=== PATIENT | male | born 1945 | race Caucasian/White ===

== ENCOUNTER → 2023-10-05 11:38 | Outpatient (REF) | payer MEDICARE, OTHER, SELFPAY ==
[2023-10-05 13:03] LABS: PSA, Total - Diagnostic < 0.06 ng/ml (0.0-4.0)
== END ==
LOC: REG 11:38
PROVIDERS: ATTENDING PHYSICIAN Specialist; FAMILY PHYSICIAN Family Medicine
DX: C61 Malignant neoplasm of prostate (principal)
CPT/HCPCS: 36415; 84153

== ENCOUNTER → 2023-11-17 08:25 | Outpatient (REF) | payer MEDICARE, BC, SELFPAY ==
[2023-11-17 10:31] LABS: ALT (SGPT) 23 U/L (0-50); AST (SGOT) 25 U/L (17-59); Albumin 4.4 g/dl (3.5-5.0); Alkaline Phosphatase 88 U/L (38-126); Blood Urea Nitrogen 30 mg/dl (9-20); Calcium 9.3 mg/dl (8.4-10.2); Carbon Dioxide 26 mmol/L (22-30); Chloride 105 mmol/L (98-107); Glucose 175 mg/dl (70-99); HDL Cholesterol 28 mg/dl; LDL Cholesterol, Calculated 62 mg/dl; Potassium 4.6 mmol/L (3.5-5.1); Sodium 137 mmol/L (135-145); Total Bilirubin 0.6 mg/dl (0.2-1.3); Total Cholesterol 120 mg/dl (50-199); Total Protein 7.1 g/dl (6.3-8.2); Triglyceride 151 mg/dl (10-149); Very Low Density Lipoprotein 30 mg/dl (0-30); eGFR > 60.00
[2023-11-17 11:28] LABS: Microalbumin, Random Urine 4.6 mg/dl (0.6-1.7); Microalbumin/creatinine Ratio 59.1 mg/g
[2023-11-17 11:30] LABS: Glycohemoglobin (HgbA1c) 8.1 % (4.0-5.6)
== END ==
LOC: REG 08:25
PROVIDERS: ATTENDING PHYSICIAN Family Medicine; FAMILY PHYSICIAN Family Medicine
DX: E11.69 Type 2 diabetes mellitus with other specified complication (principal)
CPT/HCPCS: 36415; 80053; 80061; 82043; 82570; 83036

== ENCOUNTER → 2024-01-12 11:08 | Outpatient (REF) | payer MEDICARE, BC, SELFPAY ==
[2024-01-12 13:05] LABS: PSA, Total - Diagnostic < 0.06 ng/ml (0.0-4.0)
== END ==
LOC: REG 11:08
PROVIDERS: ATTENDING PHYSICIAN Specialist; FAMILY PHYSICIAN Family Medicine
DX: C61 Malignant neoplasm of prostate (principal)
CPT/HCPCS: 36415; 84153

== ENCOUNTER → 2024-06-22 09:52 | Outpatient (REF) | payer MEDICARE, BC, SELFPAY ==
[2024-06-22 12:23] LABS: PSA, Total - Diagnostic < 0.06 ng/ml (0.0-4.0)
== END ==
LOC: REG 09:52
PROVIDERS: ATTENDING PHYSICIAN Specialist; FAMILY PHYSICIAN Family Medicine
DX: C61 Malignant neoplasm of prostate (principal)
CPT/HCPCS: 36415; 84153

== ENCOUNTER 2024-09-15 05:43 | Emergency (ER) | payer MEDICARE, BC, SELFPAY ==
[2024-09-15] VITALS (7 sets, daily range): BP systolic 144–194; BP diastolic 73–86; BMI 32.3
--- NOTE | 2024-09-15 06:19 | ED.GENMED ---
History of Present Illness
<Kirill Ramsay MD - Last Filed: 09/15/24 07:45>
General
Chief Complaint: Headache
Source: patient and spouse
Exam Limitations: none
Time Seen by Provider: 09/15/24 05:58
Nursing documentation reviewed up to this point in time: agreed with
History of Present Illness
History of Present Illness:
78-year-old male with a past medical history as noted presents to the emergency room for evaluation of headache. Patient reports sudden onset rather severe headache that woke him up at 4 AM and has been constant since that time. He reports that it
wraps around in a band around the left side of his head. No clear trigger or relieving factors noted although he did try 2 Tylenol prior to coming to the hospital. He denies any neck pain or stiffness. He denies any eye pain. Denies any vision
loss. He denies any speech issues. Denies any weakness or numbness in extremities. He denies feeling nauseated or vomiting. He says 'I have not had a headache in 25 years.' Denies any head trauma.
Past History
<Kirill Ramsay MD - Last Filed: 09/15/24 07:45>
Past History
ED Past Medical History: Hypercholesterolemia and Other (bph, skin cancer)
ED Past Surgical History: None, Orthopedic and Urological
Social History
Tobacco: Non-smoker
Living: with family
Review of Systems
<Kirill Ramsay MD - Last Filed: 09/15/24 07:45>
Review of Systems
All Other Systems: ROS reviewed and negative except as documented in HPI and ROS
Constitutional: Denies fever or chills
Respiratory: Denies trouble breathing
Cardiac: Denies chest pain or syncope
ABD/GI: Denies abdominal pain, nausea or vomiting
: Denies flank pain
Musculoskeletal: Denies neck pain or back pain
Neurological: Reports headache; Denies dizzy, weakness or numbness
Phy Exam
<Kirill Ramsay MD - Last Filed: 09/15/24 07:45>
Physical Exam
Physical Exam:
General: Awake, alert, oriented x3; actually quite well-appearing sitting in bed and in no acute distress
Head: Normocephalic, atraumatic
Eyes: Conjunctiva normal, EOMI, pupils midrange and reactive to light bilaterally; eye pressure R 8,9,9//L 10,10,9
Throat: Airway intact, handling secretions
Neck: Trachea midline, supple without meningismus
Lungs: Clear to auscultation bilaterally, no wheezing, rales, rhonchi
Heart: Regular rate and rhythm, no murmurs, gallops, or rubs
Abd: Soft, non distended, nontender
Neuro: Cranial nerves intact, speech fluid no dysarthria or aphasia, no limb ataxia, motor and sensory intact in all extremities
Skin: no rash
Extremities: Warm and well-perfused, no edema
Scores
<Kirill Ramsay MD - Last Filed: 09/15/24 07:45>
Heart Failure Risk
Heart Failure Risk Score: Not Applicable
Heart Score for Chest Pain Patients
STEMI patient?: Not applicable
Withdrawal Assessment of Alcohol
Withdrawal Assessment Completed?: Not applicable
Course
<Kirill Ramsay MD - Last Filed: 09/15/24 07:45>
Orders/Labs/Results
Orders:
Orders
09/15/24 05:57
CT Head & Neck Angio W/wo IV Urgent
Comment:
Reason For Exam: thunderclap headache
09/15/24 06:11
Comprehensive Metabolic Panel Urgent
09/15/24 06:12
COVID-19 Antigen Urgent
Source: Nasal Swab
Complete Blood Count/With Diff Urgent
ESR [Erythrocyte Sed Rate] Urgent
Influenza A+B Rapid Molecular Urgent
NINI Source: Nasal Swab
Specimen Description:
09/15/24 06:25
Diphenhydramine [Benadryl] 25 mg IV NOW STA
Metoclopramide [Reglan] 10 mg IV NOW STA
09/15/24 06:26
0.9% Sodium Chloride 1000 ml [Nss] 1,000 ml IV BOLUS
09/15/24 07:00
Ketorolac [Toradol] 15 mg IV NOW STA
09/15/24 07:43
NEUROLOGY CONSULT Urgent
Consulting Provider: Ana Wynn
Was physician already notified: Yes
09/15/24 08:55
MRI Brain [MR Brain W/o & With Contrast] Routine
Comment:
Reason For Exam: stroke
OK for patient to be off Cardiac Monitoring for MRI: No
Recent pill cam endoscopy?: No
09/15/24 09:18
CRP [C-Reactive Protein] Routine
Magnesium Routine
09/15/24 10:04
Acid Fast Culture & Smear Urgent
NINI Source: Csf
Specimen Description:
CSF Cell Count X Urgent
CSF Tube Number: 4
CSF Culture with Gram Stain Urgent
NINI Source: Csf
Specimen Description:
# of Tube: 3
Meningitis Panel, CSF by PCR Urgent
NINI Source: Csf
Specimen Description:
09/15/24 10:47
IRAD CONSULT Routine
Consulting Provider: Terence Schmidt
Was physician already notified: Yes
Reason for Consult/Procedure: SAH
Acknowledgement that appropriate orders are entered: Yes
09/15/24 10:50
Add On- LAB Routine
Comments:: Please add to today's CSF
Tests Added?: CSF spectrophotometry, VZV PCR, encephalitis panel
09/15/24 11:24
B12 [Vitamin B12] Routine
Folate Routine
Lyme PCR, DNA [S] Urgent
Protein Electrophoresis Reflex [S] Routine
TSH Reflex To Free T4 Routine
Abnormal Lab Results
09/15/24 09/15/24 09/15/24
06:11 06:12 09:18
RBC 4.46 L 10^6/uL
(4.70-6.10)
MCHC 32.8 L g/dL
(33.0-37.0)
Abs Immat Gran (auto) 0.1 H 10^3/uL
(0-0.05)
Absolute Monos (auto) 0.9 H 10^3/uL
(0.1-0.6)
Lymphocytes % 17.3 L %
(20.5-51.1)
Eosinophils % 7.8 H %
(0-6)
BUN 26 H mg/dl
(9-20)
Glucose 196 H mg/dl
(70-99)
C-Reactive Protein 11.40 H mg/L
(0.0-10.00)
09/15/24 06:12
09/15/24 06:11
Vital Signs
Initial and Last Documented VS:
Initial Vital Signs
Temp Pulse Resp BP Pulse Ox
97.4 F 55 20 194/83 98
09/15/24 05:51 09/15/24 05:51 09/15/24 05:51 09/15/24 05:51 09/15/24 05:51
Last Documented Vital Signs
Temp Pulse Resp BP Pulse Ox
97.4 F 54 20 154/80 99
09/15/24 05:51 09/15/24 10:01 09/15/24 05:51 09/15/24 10:01 09/15/24 10:52
Cullenlt;Sal Zavaleta PA-C - Last Filed: 09/15/24 12:38>
Orders/Labs/Results
Orders:
Orders
09/15/24 05:57
CT Head & Neck Angio W/wo IV Urgent
Comment:
Reason For Exam: thunderclap headache
09/15/24 06:11
Comprehensive Metabolic Panel Urgent
09/15/24 06:12
COVID-19 Antigen Urgent
Source: Nasal Swab
Complete Blood Count/With Diff Urgent
ESR [Erythrocyte Sed Rate] Urgent
Influenza A+B Rapid Molecular Urgent
NINI Source: Nasal Swab
Specimen Description:
09/15/24 06:25
Diphenhydramine [Benadryl] 25 mg IV NOW STA
Metoclopramide [Reglan] 10 mg IV NOW STA
09/15/24 06:26
0.9% Sodium Chloride 1000 ml [Nss] 1,000 ml IV BOLUS
09/15/24 07:00
Ketorolac [Toradol] 15 mg IV NOW STA
09/15/24 07:43
NEUROLOGY CONSULT Urgent
Consulting Provider: Ana Wynn
Was physician already notified: Yes
09/15/24 08:55
MRI Brain [MR Brain W/o & With Contrast] Routine
Comment:
Reason For Exam: stroke
OK for patient to be off Cardiac Monitoring for MRI: No
Recent pill cam endoscopy?: No
09/15/24 09:18
CRP [C-Reactive Protein] Routine
Magnesium Routine
09/15/24 10:04
Acid Fast Culture & Smear Urgent
NINI Source: Csf
Specimen Description:
CSF Cell Count X Urgent
CSF Tube Number: 4
CSF Culture with Gram Stain Urgent
NINI Source: Csf
Specimen Description:
# of Tube: 3
Meningitis Panel, CSF by PCR Urgent
NINI Source: Csf
Specimen Description:
09/15/24 10:47
IRAD CONSULT Routine
Consulting Provider: Terence Schmidt
Was physician already notified: Yes
Reason for Consult/Procedure: SAH
Acknowledgement that appropriate orders are entered: Yes
09/15/24 10:50
Add On- LAB Routine
Comments:: Please add to today's CSF
Tests Added?: CSF spectrophotometry, VZV PCR, encephalitis panel
09/15/24 11:24
B12 [Vitamin B12] Routine
Folate Routine
Lyme PCR, DNA [S] Urgent
Protein Electrophoresis Reflex [S] Routine
TSH Reflex To Free T4 Routine
Abnormal Lab Results
09/15/24 09/15/24 09/15/24
06:11 06:12 09:18
RBC 4.46 L 10^6/uL
(4.70-6.10)
MCHC 32.8 L g/dL
(33.0-37.0)
Abs Immat Gran (auto) 0.1 H 10^3/uL
(0-0.05)
Absolute Monos (auto) 0.9 H 10^3/uL
(0.1-0.6)
Lymphocytes % 17.3 L %
(20.5-51.1)
Eosinophils % 7.8 H %
(0-6)
BUN 26 H mg/dl
(9-20)
Glucose 196 H mg/dl
(70-99)
C-Reactive Protein 11.40 H mg/L
(0.0-10.00)
09/15/24 06:12
09/15/24 06:11
Vital Signs
Initial and Last Documented VS:
Initial Vital Signs
Temp Pulse Resp BP Pulse Ox
97.4 F 55 20 194/83 98
09/15/24 05:51 09/15/24 05:51 09/15/24 05:51 09/15/24 05:51 09/15/24 05:51
Last Documented Vital Signs
Temp Pulse Resp BP Pulse Ox
97.4 F 54 20 154/80 99
09/15/24 05:51 09/15/24 10:01 09/15/24 05:51 09/15/24 10:01 09/15/24 10:52
<Kirill Ramsay MD - Last Filed: 09/15/24 07:45>
MDM/Problems Addressed
Differential Diagnosis Includes:
Subarachnoid hemorrhage, migraine headache, temporal arteritis, tension headache, glaucoma
MDM/Problems Addressed:
78-year-old male presents to the ER for evaluation of sudden onset headache this morning. He is hypertensive but has otherwise normal vitals. Physical exam as above�notably nonfocal neurologic exam, eye pressures normal. With sudden
onset/thunderclap headache and 78-year-old he does not typically get headaches must consider subarachnoid hemorrhage. Will plan to place an IV send labs including CBC and a CMP will check an ESR. Will check COVID and flu swabs. Sent for stat CTA
head and neck. Treat symptomatically. Reassess after the above.
CTA head and neck negative for any acute pathology. Labs reviewed: CBC and CMP no clinically significant abnormalities. ESR pending. Blood pressure has normalized without intervention. Continue to monitor.
Patient still complaining of headache after migraine cocktail and fluids although he says symptoms have improved somewhat. With new onset thunderclap headache in an 78-year-old and persistent symptoms despite treatment discussed case with neurology
for consultation.
Acute Exacerbation and/or Progression of Chronic Illness:
Acute hypertensive
Acute Exacerbation and/or Progression of Chronic Illness: HTN
<Kirill Ramsay MD - Last Filed: 09/15/24 07:45>
*Radiology
Radiology exam reviewed: radiology read reviewed
*Pulse Oximetry
Patient hypoxic: no
*Critical Care Note
Total Time (30-74mins, 75-104mins- exclusive of procedures): Not Applicable
Data Reviewed
Source: patient and spouse
<Kirill Ramsay MD - Last Filed: 09/15/24 07:45>
Patient Management
Discussion with other providers: Cigar Inspector (Discussed with neurology)
<Sal Zavaleta PA-C - Last Filed: 09/15/24 12:38>
Update Note
Update Note:
Assumed care of patient pending neurology evaluation. Neurology did recommend MRI of the brain which the patient did receive today. There was no acute findings. Neurology also recommended initially lumbar puncture to evaluate for xanthochromia.
Discussed this with the patient. Reassessed the patient. He is neurologically intact and has no complaints of headache. He expresses his desire to go home. He does not wish to receive a lumbar puncture. Patient made aware. Neurology made aware
of patient's decision. Will discharge home
ED Attending Note
<Kirill Ramsay MD - Last Filed: 09/15/24 07:45>
-
Portions of this chart may have been created with voice recognition software.� Occasional wrong word or��sound alike� substitutions may have occurred due to the inherent limitations of voice recognition software.
Discharge Plan
Departure
Patient Disposition: Home (Routine Discharge)
Date of Disposition: 09/15/24
Time of Disposition: 12:37
Patient with high blood pressure during this ER visit?: Yes
Discharge Problem:
Headache, Hypertension
Instructions: Headache, Adult (DC), BLOOD PRESSURE
Prescriptions:
No Action
allopurinol 100 mg Tablet
100 mg PO DAILY
prioozzubexc-kgjaonhj-zkkslf Tablet
1 tab PO DAILY
rosuvastatin 5 mg Tablet
5 mg PO DAILY
glucosamine HCl 1,500 mg Tablet
3,000 mg PO DAILY
Tart Richards [id number] mg Capsule
1 cap PO DAILY Qty: 0
Prevagen
1 cap PO QPM
omega 6-acp-xcm-fish oil [Fish Oil] 1,000 mg (120 mg-180 mg) Capsule
1 cap PO DAILY
cephalexin 500 mg Capsule
500 mg PO QID Qty: 40 0RF
Referrals:
Pancho Bryant, DO [Family Provider] - Follow up in 2-3 days
Activity Restrictions/Additional Instructions:
Thank you for visiting the Emergency Department at [facility].
1. Please schedule a follow up appointment as directed. Call first thing tomorrow morning to make an appointment.
2. If indicated, please take your medications as instructed and indicated on discharge paperwork.
3. If any of your symptoms do not improve, or persist, or become more severe within 6-12 hours, please return to the emergency department for further care.
4. Please return to the emergency department if you develop a headache, neck pain/stiffness, fever greater than 100.4F, chest pain, shortness of breath, persistent nausea, vomiting, slurred speech, difficulty walking, numbness/tingling, weakness,
signs of infection or any other symptoms that are worrisome to you.
Please call [phone] if you have any questions.
Interventions
Interventions:
*Risk Screen - Suicide Last Done: 09/15/24 06:08
*General Assessment Last Done: 09/15/24 06:08
*Neglect/Abuse Screening Last Done: 09/15/24 06:08
ED- Fall Risk Assessment Last Done: 09/15/24 07:16
*ED COVID-19 Vaccine History Last Done: 09/15/24 06:08
ED- Neurological Assessment Last Done: 09/15/24 06:08
Discharge Date and Time
Print Language: [place]
[2024-09-15 06:28] LABS: % Basophils 0.5 % (0-2); % Eosinophils 7.8 % (0-6); % Immature Granulocytes 0.5 % (0-0.5); % Lymphocytes 17.3 % (20.5-51.1); % Monocytes 9.2 % (1.7-9.3); % Neutrophils 64.7 % (42.2-75.2); Absolute Basophils 0.1 10^3/uL (0-0.2); Absolute Eosinophils 0.7 10^3/uL (0-0.7); Absolute Immature Granulocytes 0.1 10^3/uL (0-0.05); Absolute Lymphocytes 1.6 10^3/uL (1.2-3.4); Absolute Monocytes 0.9 10^3/uL (0.1-0.6); Absolute Neutrophils 6.1 10^3/uL (1.4-6.5); Hematocrit 40.9 % (39.0-52.0); Hemoglobin 13.4 g/dL (13.0-18.0); Mean Corp Hgb Conc. 32.8 g/dL (33.0-37.0); Mean Corpuscular Volume 91.7 fL (80.0-94.0); Mean Platelet Volume 10.2 fL (7.4-10.4); Nucleated Red Blood Cells % 0 % (-); Platelet Count 211 10^3/uL (130-400); Red Blood Cell Count 4.46 10^6/uL (4.70-6.10); Red Cell Dist. Width 12.3 % (11.5-14.5); White Blood Cell Count 9.4 10^3/uL (4.8-10.8)
[2024-09-15 06:42] LABS: ALT (SGPT) 23 U/L (0-50); AST (SGOT) 24 U/L (17-59); Albumin 4.2 g/dl (3.5-5.0); Alkaline Phosphatase 83 U/L (38-126); Blood Urea Nitrogen 26 mg/dl (9-20); Carbon Dioxide 22 mmol/L (22-30); Chloride 104 mmol/L (98-107); Estimated Creatinine Clearance 88 ml/min; Glucose 196 mg/dl (70-99); Potassium 4.3 mmol/L (3.5-5.1); Sodium 139 mmol/L (135-145); Total Bilirubin 0.8 mg/dl (0.2-1.3); Total Protein 7.1 g/dl (6.3-8.2); eGFR > 60.00
[2024-09-15] MEDS: NSS 1000 IV (07:10)
[2024-09-15] MEDS: TORADOL 15 MG IV (07:10)
[2024-09-15] MEDS: BENADRYL 25 MG IV (07:11)
[2024-09-15] MEDS: REGLAN 10 MG IV (07:11)
[2024-09-15 07:15] LABS: COVID-19 Antigen Negative (Negative)
[2024-09-15 07:37] LABS: Erythrocyte Sed Rate 10 mm/hour (0-20)
--- NOTE | 2024-09-15 08:51 | CON.NEURO ---
Consultation
Order
Date of Consultation: 09/15/24
Requesting Provider: Kirill Ramsay MD
Reason for Consult: Thunderclap headache
Neurology Consultation Note.
HPI: This is an 78-year-old RH man who presented to [facility] on 09/15/2024 with headache. According to the patient he developed new-onset headache left supraorbital throbbing 7 out of 10 headache that woke him up at 4 AM this
morning. No associated photophobia, phonophobia, nausea, change in vision, fever, head trauma, nasal congestion, recently started to discontinued medications.
The patient has no history of pre-existing headache syndrome.
Mr. Elder admits to intermittent lightheadedness particularly when bending down or getting up too quickly.
ER VS: 194/83, 68�47, afebrile
EKG: Pending
PDMP: none
Labs: Glucose�196, normal sodium, WBCs, calcium, LFTs, SARS-CoV-2 antigen�negative. Mg 1.6
CT head wo contrast/CTA head/neck�right cerebellar/L CR hypodensities, no evidence of dissection, aneurysms, dural venous thrombosis or significant stenosis. left MANAGER COST. Mild to moderate ethmoid sinus mucosal thickening.
MAR: Reglan 10 mg, ketorolac 15 mg, Benadryl 25 mg.
PMH: prostatic adenocarcinoma, sinus bradycardia, DLP, DM, hypothyroidism, gout
PSH: prostatectomy, bilateral cataract surgery, left shoulder arthroscopy
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
FH: Mother in her 90s, father from coronary artery disease in his 60s
All:NKDA
ROS: Constitutional: Negative. Negative for chills, fever and unexpected weight change.
HENT: Positive for chronic dysphonia
Eyes: Negative. Negative for photophobia, pain and visual disturbance.
Respiratory: Negative for cough, choking and shortness of breath.
Cardiovascular: Negative for chest pain, palpitations and leg swelling.
Gastrointestinal: Negative for abdominal pain and vomiting.
Endocrine: Negative. Negative for cold intolerance.
Musculoskeletal: Negative for back pain, gait problem, neck pain and neck stiffness.
Skin: Negative for rash.
Allergic/Immunologic: Negative. Negative for immunocompromised state.
Neurological: Positive for headache, intermittent tingling in the feet
Psychiatric/Behavioral: Negative for behavioral problems, confusion and hallucinations.
General: Well developed. In no acute distress.
Cardio: Regular rate and rhythm without murmur. Extremities are without cyanosis or edema.
Neuro:
Mental Status: Alert, oriented to person, place, and date. Normal attention and recall. Good fund of knowledge. Follows complex requests across the midline. Comprehension, naming, and repetition intact. Immediate recall 3/3.
Cranial Nerves: Pupils are equally round, surgical. EOMs full. Visual garcia full to confrontation. No ptosis. No nystagmus. V1-V3 intact to light touch and pinprick bilaterally, symmetric. Face symmetric. Impaired hearing AU. The palate
elevated well. SCMs and traps 5/5. Tongue midline. Moderate dysphonia dysarthria.
Motor: Normal bulk and tone. No pronator or arm drift. Strength 5/5 throughout. No clonus.
Reflexes: Trace throughout.
Sensory: Absent vibration at the ankles and toes
Coordination: No dysmetria or tremor.
Gait: deferred
Assessment and Plan:
I. New onset of headache, likely secondary (SAH, para sinus disease)
II. 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
III. Ethmoid sinus mucosal thickening
IV. 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
V. Hypomagnesemia
-Telemetry monitoring
-Avoid medications and substances known to cause headache as a side effect (�Prevagen)
-Please check ESR, CRP, TFTs,
-CSF to rule out SAH
-Brain MRI without suzi
-ENT consult
-IV Reglan 10 mg, Benadryl 25 mg Q8h PRN for moderate to severe headache.
I personally reviewed all radiology and labs along with past medical records pertinent to current medical problems. Total time spent in patient care is 60 minutes.
Thank you for allowing us to participate in the care of this patient. We will continue to follow. Please do not hesitate to contact us with any questions or concerns.
Subjective/Objective
Subjective Data
Date of Service: September 15, 2024
Objective Data
Vital Signs
Temp Pulse Resp BP Pulse Ox
36.3 C 48 20 164/86 98
09/15/24 05:51 09/15/24 07:45 09/15/24 05:51 09/15/24 08:00 09/15/24 07:45
Lab Results
09/15/24 06:12
09/15/24 06:11
Sodium 139 mmol/L (135-145) 09/15/24 06:11
Potassium 4.3 mmol/L (3.5-5.1) 09/15/24 06:11
BUN 26 mg/dl (9-20) H 09/15/24 06:11
Glucose 196 mg/dl (70-99) H 09/15/24 06:11
Calcium 9.0 mg/dl (8.4-10.2) 09/15/24 06:11
Patient Allergies
pollen extracts Allergy (Verified 09/15/24 05:51)
Sneezing - seasonal
Medications
-
Home Medications
�Medication �Instructions �Recorded
Prevagen 1 cap PO QPM Neurological Condition 06/11/22
allopurinol 100 mg tablet 100 mg PO DAILY Gout 06/11/22
glucosamine HCl 1,500 mg tablet 3,000 mg PO DAILY Supplement 06/11/22
hfwpzijqxljv-gvweyeyi-iqlgxf tablet 1 tab PO DAILY Supplement 06/11/22
rosuvastatin 5 mg tablet 5 mg PO DAILY High cholesterol 06/11/22
vit C 30 mg-s.richards 250 mg-celery 1 cap PO DAILY Supplement ##0 06/11/22
seed 75 mg-grape seed extrt
capsule (Tart Richards)
omega 2-ybq-yax-fish oil 1,000 mg 1 cap PO DAILY 07/21/22
(120 mg-180 mg) capsule (Fish Oil)
cephalexin 500 mg capsule 500 mg PO QID #40 caps 07/25/22
Vital Signs and Labs
-
Vital Signs and Labs:
Vital Signs
Temp Pulse Resp BP Pulse Ox
36.3 C 48 20 164/86 98
09/15/24 05:51 09/15/24 07:45 09/15/24 05:51 09/15/24 08:00 09/15/24 07:45
Lab Results
09/15/24 06:12
09/15/24 06:11
Sodium 139 mmol/L (135-145) 09/15/24 06:11
Potassium 4.3 mmol/L (3.5-5.1) 09/15/24 06:11
BUN 26 mg/dl (9-20) H 09/15/24 06:11
Glucose 196 mg/dl (70-99) H 09/15/24 06:11
Calcium 9.0 mg/dl (8.4-10.2) 09/15/24 06:11
Home Medications
-
Home Medications
Prevagen 1 cap PO QPM Neurological Condition 06/11/22
allopurinol 100 mg tablet 100 mg PO DAILY Gout 06/11/22
glucosamine HCl 1,500 mg tablet 3,000 mg PO DAILY Supplement 06/11/22
ngzbwmezniqc-sjbbvffh-xjljxu tablet 1 tab PO DAILY Supplement 06/11/22
rosuvastatin 5 mg tablet 5 mg PO DAILY High cholesterol 06/11/22
vit C 30 mg-s.richards 250 mg-celery seed 75 mg-grape seed extrt capsule (Tart Richards) 1 cap PO DAILY Supplement ##0 06/11/22
omega 4-jph-zjs-fish oil 1,000 mg (120 mg-180 mg) capsule (Fish Oil) 1 cap PO DAILY 07/21/22
cephalexin 500 mg capsule 500 mg PO QID #40 caps 07/25/22
[2024-09-15 09:59] LABS: Magnesium 1.6 mg/dl (1.6-2.3)
[2024-09-15 16:44] LABS: TSH Reflex To Free T4 4.47 uIU/ml (0.47-4.68)
[2024-09-15 17:19] LABS: Folate > 20.0 ng/ml (2.76-20)
[2024-09-15 18:18] LABS: Vitamin B12 842 pg/ml (239-931)
== END 2024-09-15 12:44 | disposition home or self-care (01) ==
LOC: EMR 05:43
PROVIDERS: CONSULT PHYSICIAN Psychiatry & Neurology Neurology; CONSULT PHYSICIAN Radiology Diagnostic Radiology; EMERGENCY PHYSICIAN Emergency Medicine; FAMILY PHYSICIAN Family Medicine
DX: R51.9 Headache, unspecified (principal); I10 Essential (primary) hypertension; E83.42 Hypomagnesemia; E03.9 Hypothyroidism, unspecified; E11.9 Type 2 diabetes mellitus without complications; E78.00 Pure hypercholesterolemia, unspecified; Z85.46 Personal history of malignant neoplasm of prostate; Z85.828 Personal history of other malignant neoplasm of skin; Z90.79 Acquired absence of other genital organ(s)
CPT/HCPCS: 99284; 96374; 96375; 96361; 70496; 70498; 70553; 80053; 82607; 82746; 82784; 83735; 84155; 84165; 84443; 85025; 85652; 86140; 86334; 87476; 87502; 87811; A9575; Q9967

== ENCOUNTER → 2024-12-27 11:20 | Outpatient (REF) | payer MEDICARE, BC, SELFPAY ==
[2024-12-27 13:26] LABS: PSA, Total - Diagnostic < 0.06 ng/ml (0.0-4.0)
== END ==
LOC: REG 11:20
PROVIDERS: ATTENDING PHYSICIAN Specialist; FAMILY PHYSICIAN Family Medicine
DX: C61 Malignant neoplasm of prostate (principal)
CPT/HCPCS: 36415; 84153

== ENCOUNTER → 2025-07-01 13:15 | Outpatient (REF) | payer MEDICARE, BC, SELFPAY ==
[2025-07-01 15:14] LABS: PSA, Total - Diagnostic < 0.06 ng/ml (0.0-4.0)
== END ==
LOC: REG 13:15
PROVIDERS: ATTENDING PHYSICIAN Specialist; FAMILY PHYSICIAN Family Medicine
DX: C61 Malignant neoplasm of prostate (principal)
CPT/HCPCS: 36415; 84153